=== PATIENT | female | born 1970 | race American Indian/Alaskan Native ===

== ENCOUNTER 2017-09-30 18:33 | Emergency (ER) | payer OTHER ==
[2017-09-30] MEDS ORDERED: CATAPRES ONE (19:05)
[2017-09-30] MEDS ORDERED: CATAPRES PO ONE (19:08)
[2017-09-30 19:50] LABS: Basophils # (Auto) 0.1 K/mm3 (0.0-0.1); Basophils % (Auto) 0.7 % (0.0-1.8); Eosinophils # (Auto) 0.2 K/mm3 (0.0-0.4); Eosinophils % (Auto) 2.2 % (0.0-4.3); Hematocrit 42.9 % (30.3-42.9); Hemoglobin 14.3 gm/dl (10.1-14.3); Lymphocytes # (Auto) 4.2 K/mm3 (1.2-5.4); Lymphocytes % (Auto) 40.7 % (13.4-35.0); Mean Corpuscular HGB Conc 33 % (30-34); Mean Corpuscular Hemoglobin 32 pg (28-32); Mean Corpuscular Volume 96 fl (79-97); Monocytes # (Auto) 0.9 K/mm3 (0.0-0.8); Monocytes % (Auto) 8.4 % (0.0-7.3); Red Blood Count 4.45 M/mm3 (3.65-5.03); Red Cell Distribution Width 14.6 % (13.2-15.2)
[2017-09-30 19:51] LABS: Platelet Count 304 K/mm3 (140-440)
[2017-09-30 20:09] LABS: BUN/Creatinine Ratio 20; Blood Urea Nitrogen 12 mg/dL (7-17); Calcium 9.6 mg/dL (8.4-10.2); Hemolysis Index 24
[2017-09-30 23:56] VITALS: BP 130/64
--- NOTE | 2017-10-01 00:58 | Emergency Department Report ---
HPI - General Chief Complaint: High BP Time Seen by Provider: 10/01/17 00:40 - HPI HPI: Jacobs 7 The patient is a 47-year-old female presented with a chief complaint of hypertension. The patient states she's been taking her medication as prescribed for the past 2 days before this she was taking them every other day. The patient states she is completely asymptomatic but decided to stop [place] the [employer] [place] for random blood pressure check was found to be 200/110. Patient denies any complaints and states she feels "magnificent." Location: Cardiovascular system Duration: [See above] Quality: Hypertension Severity: 200/110 Modifying factors: [see above] Context: [see above] Mode of transportation: [not driving] ED Past Medical Hx - Past Medical History Hx Hypertension: Yes - Surgical History Additional Surgical History: Breast reduction with 5 corrections, vaginal cyst removal, LAP-BAND - Family History Family history: no significant - Social History Smoking Status: Never Smoker Substance Use Type: None (denies illicit drug use), Alcohol (occasional) - Medications Home Medications: Home Medications Medication Instructions Recorded Confirmed Last Taken Type amLODIPine [Norvasc] 5 mg PO DAILY #90 tab 10/01/17 Unknown Rx ED Review of Systems ROS: Stated complaint: HIGH BLOOD PRESSURE Other details as noted in HPI Eyes: denies: eye pain ENT: denies: throat pain Cardiovascular: denies: chest pain Gastrointestinal: denies: abdominal pain Genitourinary: denies: dysuria Musculoskeletal: denies: back pain Neurological: headache Physical Exam - Physical Exam Vital Signs: Vital Signs 09/30/17 09/30/17 09/30/17 18:54 20:22 23:20 Temperature 98.1 F 98.3 F 98 F Pulse Rate 95 H 83 78 Respiratory 16 16 18 Rate Blood Pressure 223/118 Blood Pressure 163/95 130/64 [Left] O2 Sat by Pulse 98 100 100 Oximetry Physical Exam: GENERAL: The patient is well-developed well-nourished female lying on stretcher not appearing to be in acute distress. [] HEENT: Normocephalic. Atraumatic. Extraocular motions are intact. Patient has moist mucous membranes. NECK: Supple. Trachea midline CHEST/LUNGS: Clear to auscultation. There is no respiratory distress noted. HEART/CARDIOVASCULAR: Regular. There is no tachycardia. There is no gallop rub or murmur. ABDOMEN: Abdomen is soft, nontender. Patient has normal bowel sounds. There is no abdominal distention. SKIN: There is no rash. There is no edema. There is no diaphoresis. NEURO: The patient is awake, alert, and oriented. The patient is cooperative. The patient has no focal neurologic deficits. The patient has normal speech. Cranial nerves II thro There is no evidence of acute injury. ED Course Vital Signs 09/30/17 09/30/17 09/30/17 18:54 20:22 23:20 Temperature 98.1 F 98.3 F 98 F Pulse Rate 95 H 83 78 Respiratory 16 16 18 Rate Blood Pressure 223/118 Blood Pressure 163/95 130/64 [Left] O2 Sat by Pulse 98 100 100 Oximetry ED Medical Decision Making - Lab Data Result diagrams: 09/30/17 19:35 09/30/17 19:35 Laboratory Tests 09/30/17 09/30/17 19:35 19:35 WBC 10.4 RBC 4.45 Hgb 14.3 Hct 42.9 MCV 96 MCH 32 MCHC 33 RDW 14.6 Plt Count 304 Lymph % (Auto) 40.7 H Ritchie % (Auto) 8.4 H Eos % (Auto) 2.2 Baso % (Auto) 0.7 Lymph # 4.2 Ritchie # 0.9 H Eos # 0.2 Baso # 0.1 Seg Neutrophils % 48.0 Seg Neutrophils # 5.0 Sodium 135 L Potassium 4.0 Chloride 93.8 L Carbon Dioxide 26 Anion Gap 19 BUN 12 Creatinine 0.6 L Estimated GFR > 60 BUN/Creatinine Ratio 20 Glucose 116 H Calcium 9.6 - Medical Decision Making I discussed with the patient at length how she could be asymptomatic with hypertension and this can lead to significant morbidity and/or mortality down the road if there is no intervention. I stressed the importance of obtaining her own blood pressure cuff and to keep a log of her blood pressures each day as well as at times she takes her medications. I explained to the patient that this will be helpful for her primary physician to help adjust her medications as needed Critical care attestation.: If time is entered above; I have spent that time in minutes in the direct care of this critically ill patient, excluding procedure time. ED Disposition Clinical Impression: Hypertension Disposition: DC-01 TO HOME OR SELFCARE Is pt being admited?: No Does the pt Need Aspirin: No Condition: Stable Instructions: Hypertension (ED) Additional Instructions: Return to the emergency department immediately should you develop worsening symptoms, fever, inability to tolerate food or liquid or any other concerns. Prescriptions: amLODIPine [Norvasc] 5 mg PO DAILY #90 tab Referrals: ANTOINETTE CUENCA JR, MD [Staff Physician] - [facility] (It is important that you follow -up with your primary physician for further blood pressure management.) Time of Disposition: 00:58
== END 2017-10-01 01:15 | disposition home or self-care (01) ==
LOC: ED 18:33
DX: I10 Essential (primary) hypertension (principal); Z88.6 Allergy status to analgesic agent; Z88.2 Allergy status to sulfonamides
CPT/HCPCS: 36415; 80048; 85025; 99283